=== PATIENT | male | born 1960 | race Caucasian/White ===

== ENCOUNTER → 2019-03-29 | Outpatient (CLI) | payer OTHER | END | disposition home or self-care (01) | LOC: RAD 14:33 | PROVIDERS: ATTEND Neurological Surgery | DX: M48.02 Spinal stenosis, cervical region (principal); M43.22 Fusion of spine, cervical region; M41.86 Other forms of scoliosis, lumbar region; M25.78 Osteophyte, vertebrae; M48.061 Spinal stenosis, lumbar region without neurogenic claudication | CPT/HCPCS: 72050; 72082; 72110 ==

== ENCOUNTER 2019-04-26 10:41 | Outpatient (CLI) | payer OTHER | END 2019-04-26 23:59 | disposition home or self-care (01) | LOC: RAD 10:41 | PROVIDERS: ATTEND Neurological Surgery | DX: M51.35 Other intervertebral disc degeneration, thoracolumbar region (principal); M51.36 Other intervertebral disc degeneration, lumbar region; M53.86 Other specified dorsopathies, lumbar region; M46.86 Other specified inflammatory spondylopathies, lumbar region; M50.31 Other cervical disc degeneration, high cervical region; M43.16 Spondylolisthesis, lumbar region; M43.12 Spondylolisthesis, cervical region; Z98.890 Other specified postprocedural states | CPT/HCPCS: 72050; 72110 ==